=== PATIENT | female | born 1965 ===

== ENCOUNTER → 2022-11-01 13:42 | Outpatient (CLI) | payer BC, SELFPAY ==
--- NOTE | ~2022-11-01 | US_ITS ---
EXAMINATION: US thyroid DATE: 11/01/2022 14:08 INDICATION: Thyroid nodules TECHNIQUE: Multiple ultrasound images of the thyroid were obtained. COMPARISON: None. FINDINGS: The right thyroid lobe measures 5.1 x 1.6 x 1.7 cm. The left thyroid lobe measures 4.1 x 1.5 x 2.0 c m. There is heterogeneous echogenicity throughout the thyroid. There are a few subcentimeter ill-def ined regions of decreased echogenicity without echogenic foci potentially representing solid TI-RADS 4 nodules (moderately suspicious , FNA if >=1.5 cm, annual followup is >=1 cm), the largest on the ri ght measuring 7 mm on the left measuring 8 mm. IMPRESSION: 1. Bilateral subcentimeter pseudonodules versus TI RADS 4 nodules which at this size would remain bel ow criteria for either biopsy or follow-up. Reviewed, dictated and finalized at location A. IMPRESSION: 1. Bilateral subcentimeter pseudonodules versus TI RADS 4 nodules which at this size would remain below criteria for either biopsy or follow-up.
== END ==
PROVIDERS: PCP Physician Assistant; Visit Provider Physician Assistant
DX: E04.1 Nontoxic single thyroid nodule (principal)
CPT/HCPCS: 76536